=== PATIENT | male | born 1975 | race Asian ===

== ENCOUNTER 2019-04-06 07:44 | Day surgery (SDC) | payer BC ==
[2019-04-05 15:37] VITALS: BMI 31.6
[2019-04-06] MEDS ORDERED: ceFOXitin 2 GM/50 ML Duplex BAG ONE (08:24)
[2019-04-06] MEDS ORDERED: Fentanyl 100 MCG/2 ML VIAL ONE ×2 (08:40→09:09)
[2019-04-06 09:07] LABS: #Eosinphils 0.1 thou/uL (0.0-0.7); #Lymphocytes 1.6 thou/uL (1.20-3.40); #Monocytes 0.6 thou/uL (0.11-0.59); #Neutrophils 5.1 thou/uL (1.40-6.50); %Basophils 0.5 % (0.0-1.0); %Eosinophils 1.5 % (0.0-10.0); %Lymphocytes 21.5 % (21.0-51.0); %Monocytes 8.5 % (0.0-10.0); Mean Corpuscular HGB CONC 31.2 g/dL (32.0-36.0); Mean Corpuscular Volume 80.1 fL (78.0-98.0); Platelet Count 180 thou/uL (130-400); RBC Distribution Width 14.7 % (11.5-14.5); Red Blood Cell (RBC) Count 5.59 mill/uL (4.70-6.10); White Blood Cell (WBC) Count 7.4 thou/uL (4.8-10.8)
[2019-04-06] MEDS ORDERED: Bacitracin Zinc Ointment 30 gm TUBE ONE (09:07)
[2019-04-06] MEDS ORDERED: Bupivacaine PF 0.5% 30 ML VIAL ONE (09:07)
[2019-04-06] MEDS ORDERED: EPINEPHrine 1 MG/ML AMP ONE (09:07)
[2019-04-06] MEDS ORDERED: Methylene Blue 50 MG/10 ML AMPUL ONE (09:07)
[2019-04-06] MEDS ORDERED: Lidocaine 2% w/Epinephrine 1:200K 20 ML VIAL ONE ×2 (09:07→09:08)
[2019-04-06] MEDS ORDERED: Midazolam HCl 2 mg/2 ml Vial ONE (09:09)
[2019-04-06 09:28] LABS: ALT (SGPT) 24 U/L (8-55); AST (SGOT) 29 U/L (5-34); Albumin 4.1 g/dL (3.5-5.0); Alkaline Phosphatase 60 U/L (40-110); Anion Gap 9 mmol/L (10-20); BUN (Urea Nitrogen) 8 mg/dL (8.9-20.6); Bilirubin, Total 0.5 mg/dL (0.2-1.2); Calc. Creatinine Clearance 110 mL/min (70-130); Calcium 8.8 mg/dL (7.8-10.44); Carbon Dioxide 28 mmol/L (22-29); Chloride 105 mmol/L (98-107); Estimated GFR-MDRD 59; Glucose 91 mg/dL (70-105); Potassium 4.3 mmol/L (3.5-5.1); Protein, Total 7.1 g/dL (6.0-8.3); Sodium 138 mmol/L (136-145)
[2019-04-06] MEDS ORDERED: Dexamethasone 20 MG/5 ML VIAL ONE (11:40)
[2019-04-06] MEDS ORDERED: Lidocaine 1% PF 5 ML VIAL ONE (11:40)
[2019-04-06] MEDS ORDERED: Ondansetron PF 4 MG/2 ML Vial ONE (11:40)
[2019-04-06] MEDS ORDERED: PROPOFOL 200 MG/20 ML VIAL ONE (11:40)
--- NOTE | 2019-04-06 11:51 | OP ---
DATE OF PROCEDURE: 04/06/2019 PREOPERATIVE DIAGNOSIS: Anal pain. PROCEDURES PERFORMED: Exam under anesthesia, hemorrhoidectomy. INDICATIONS: This is a 43-year-old male, who came in with a several-day history of severe anal pain and bleeding. It was not obvious as to the source as I could not see a definite thrombosed external hemorrhoid on outpatient exam, thought it might be an abscess. 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 DESCRIPTION OF PROCEDURE: After informed consent was obtained, the patient was taken to the operating room and given general endotracheal anesthesia. He was placed in lithotomy position. His perianal region was prepped and draped in usual fashion. He had undergone a mechanical bowel prep at home. Local anesthesia was infiltrated utilizing a mixture of 0.5% Marcaine mixed 1:1 with 1% lidocaine with epinephrine and this was infiltrated as a four-quadrant anal block. The bivalve anal retractor was inserted. It became obvious that the right anterior complex had thrombosis and was the source of bleeding, but he also had thrombosis in other columns that were also not bleeding, so utilizing the LigaSure. First, the right anterior complex was grasped and excised sharply with the LigaSure. Then, right lateral area was also excised, right anterior and left lateral complex. These were sent to Pathology for further analysis. Care was used to avoid removing much anal derm and just anal mucosa. Hemostasis was assured. Gelfoam impregnated with bacitracin was inserted within the anal canal. A sterile bandage was applied. The patient tolerated the procedure well, transferred to Recovery in good condition. Sponge and needle count verified correct x2. Job ID: [id number]
== END 2019-04-06 12:35 | disposition home or self-care (01) ==
LOC: SDC 07:44
PROVIDERS: ATTEND Surgery
PROC: 06BY0ZC Excision of Hemorrhoidal Plexus, Open Approach (ICD-10-PCS; principal; 2019-04-06)
DX: K64.3 Fourth degree hemorrhoids (principal); K64.4 Residual hemorrhoidal skin tags; I10 Essential (primary) hypertension; F17.200 Nicotine dependence, unspecified, uncomplicated; Z79.899 Other long term (current) drug therapy
CPT/HCPCS: 36415; 80053; 85025; 88304; 93005; 93010; J0171; J0694; J1100; J2001; J2250; J2405; J2704; J3010; Q9968; S0020